=== PATIENT | female | born 1975 | race Caucasian/White ===

== ENCOUNTER 2016-07-20 10:19 | Day surgery (SDC) | payer BC ==
[~2016-07-20] VITALS: Ht 172.7 cm; Wt 102.3 kg
[2016-07-20] VITALS (16 sets, daily range): BP systolic 103–138; BP diastolic 55–103; PULSE 60–88; RESP 12–21; Ht 172.7 cm; Wt 102.3 kg
[2016-07-20] MEDS ORDERED: T3/T4 PO (10:57)
[2016-07-20] MEDS ORDERED: MIDAZOLAM 1 MG/ML 2 ML INJ ONE (13:10)
[2016-07-20] MEDS ORDERED: FENTAnyl 50 MCG/ML VIAL ONE (13:10)
[2016-07-20] MEDS ORDERED: CEFAZOLIN 1 GM INJ ONE (14:16)
[2016-07-20] MEDS ORDERED: LIDOCAINE 2% (SDV) 5 ML INJ ONE (14:16)
[2016-07-20] MEDS ORDERED: PROPOFOL 20 ML ONE (14:16)
[2016-07-20] MEDS ORDERED: ONDANSETRON 4 MG INJ ONE (14:17)
[2016-07-20] MEDS ORDERED: MEPERIDINE 25 MG INJ IV PRN (14:30)
[2016-07-20] MEDS ORDERED: DIPHENHYDRAMINE 50 MG INJ IV PRN (14:30)
[2016-07-20] MEDS ORDERED: METOCLOPRAMIDE 10 MG INJ IV PRN (14:30)
[2016-07-20] MEDS ORDERED: ONDANSETRON 4 MG INJ IV PRN (14:30)
--- NOTE | 2016-07-20 14:54 | RADRPT ---
PROCEDURE: US Pelvis CLINICAL INDICATION: IUD removal TECHNIQUE: Multiple sonographic images of the pelvis were obtained utilizing a transabdominal and endovaginal technique. The images were reviewed on a PACS workstation. COMPARISON: None. FINDINGS: An appropriately positioned intrauterine device is noted with its tip at the fundal apex. Bilateral ovaries are not visualized. There are no abnormal adnexal masses. No significant pelvic free fluid is identified. IMPRESSION: An appropriately positioned intrauterine device is noted with its tip at the fundal apex. Bilateral ovaries are not visualized. There are no abnormal adnexal masses. RPTAT: EE Physician Shashi Date Time Electronically viewed and signed by Physician Shashi on 07/20/2016 14:53 /
[2016-07-20] MEDS ORDERED: KETOROLAC 30 MG INJ IV PRN (15:00)
[2016-07-20] MEDS ORDERED: IBUPROFEN 600 MG TAB PO PRN (15:00)
--- NOTE | 2016-07-20 15:01 | DS ---
Date/Time of Note Date/Time of Note DATE: 07/20/16 TIME: 14:48 Discharge Summary Admission/Discharge Info Admit Date/Time July 20, 2016 1030 Discharge Date/Time July 20, 2069 at 1600 Final Diagnosis Failed removal of the broken piece of IUD Patient Condition: Good Procedures Diagnostic curettage, attempt to remove broken arm of IUD which was embedded deeply in the right side of cervix closed to internal os not not able to remove it Hx of Present Illness Patient had a T-shaped IUD for 12 year during the removal at [facility] one arm of the IUD broke left in the uterus, she was referred for removal the piece of broken IUD Hospital Course Uneventful Home Meds Reported Medications [T3/T4] TAB No Conflict Check, PO DAILY, #30 07/20/16 Follow-up Plan To be seen in the office in 1 week for post D&C check Primary Care Provider Niko Ashraf Time spent on discharge: < 30 minutes APRIL RILEY MD Jul 20, 2016 14:59
[2016-07-20] MEDS: FENTAnyl 50 MCG/ML VIAL IV PRN ×2 (15:10→15:36)
--- NOTE | 2016-07-20 15:10 | PDOCDIS ---
Discharge Instructions CONDITION Patient Condition: Good HOME CARE INSTRUCTIONS: Diet Instructions: Regular ACTIVITY: Activity Restrictions: No Sexual Activity Bathing Restrictions: Shower FOLLOW UP/APPOINTMENTS Appointments 1 week APRIL RILEY MD Jul 20, 2016 15:10
--- NOTE | 2016-07-20 15:51 | OPR ---
DATE OF OPERATION: 07/20/2016 PREOPERATIVE DIAGNOSIS: Attempt for removal of the broken arm of a T-shaped IUD. POSTOPERATIVE DIAGNOSES: IUD arm was deeply embedded in the right side of the body of the cervix 1/2cm away from the cervical canal PROCEDURE: Hysteroscopy diagnostic curettage, attempt to remove broken arm of the IUD. SURGEON: April Lewis MD FORMSTONE FITTER: Kailash Anders MD ANESTHESIA: General. ANESTHESIOLOGIST: Dr. Liz DETAILS OF THE PROCEDURE: Under satisfactory general anesthesia, the patient was prepped and draped and placed in dorsal lithotomy position. Bimanual pelvic examination normal marital introitus, normal vagina, multiparous cervix, uterus normal size, adnexa negative. Weighted speculum introduced into the vagina. Anterior cervical lip grasped by Arias tenaculum. Uterine cavity sounded, measured 7 cm. A 5 mm hysteroscope was introduced into the uterine cavity, and visualization of the uterine cavity was possible. There was no IUD inside of the uterine cavity. An intraoperative ultrasound requested which, with the help of the ultrasound, it was noted the broken arm of the IUD is imbedded deeply in the right side of the cervix close to the internal os. Several attempts by myself and Dr. Anders were made to reach the IUD arm. It was not accessible. At this point, we concluded the procedure. Endometrial curetting. Send to the pathology, patient tolerated procedure well and transferred to recovery room in good condition. Dictated By: APRIL HOFFMAN/SOCO Conf#: [id number] DID#: [id number]
== END 2016-07-20 16:56 | disposition home or self-care (01) ==
LOC: SDS 10:19
PROVIDERS: ATTEND Obstetrics & Gynecology
DX: Z30.432 Encounter for removal of intrauterine contraceptive device (principal); E66.01 Morbid (severe) obesity due to excess calories; Z68.34 Body mass index [BMI] 34.0-34.9, adult
CPT/HCPCS: 58562; 76856; J0690; J1885; J2250; J2405; J3010; Z7512; Z7610